=== PATIENT | male | born 1940 | race Caucasian/White ===

== ENCOUNTER 2018-07-07 14:51 | Inpatient (IN) | payer MEDICARE, OTHER ==
[2018-07-07 15:53] LABS: ADD MAN DIFF? NO
[2018-07-07 15:57] LABS: WHITE BLOOD COUNT 5.3 10^3/ul (4.8-10.8)
[2018-07-07 15:57] LABS: BASOPHILS % 0.4 % (0.0-2.0); EOSINOPHILS % 0.8 % (0.0-7.0); HEMATOCRIT 40.4 % (42.0-52.0); HEMOGLOBIN 12.5 g/dl (14.0-18.0); LYMPHOCYTES # 0.9 10^3/ul (0.8-2.9); LYMPHOCYTES % 17.3 % (15.0-51.0); MEAN CORPUSCULAR HEMOGLOBIN 27.7 pg (29.0-33.0); MEAN CORPUSCULAR HGB CONC 30.9 g/dl (32.0-37.0); MEAN CORPUSCULAR VOLUME 89.6 fl (82.0-101.0); MEAN PLATELET VOLUME 10.9 fl (7.4-10.4); MONOCYTE # 0.5 10^3/ul (0.3-0.9); NEUTROPHIL # 3.8 10^3/ul (1.6-7.5); NEUTROPHILS % 72.3 % (39.0-77.0); PLATELET COUNT 132 10^3/UL (140-415); POSITIVE DIFF @See below; RED BLOOD COUNT 4.51 10^6/ul (4.70-6.10); RED CELL DISTRIBUTION WIDTH 16.1 % (11.5-14.5)
[2018-07-07] MEDS ORDERED: ACETAMINOPHEN 325 MG TAB PO ×2 (16:00→19:00)
[2018-07-07] MEDS ORDERED: ONDANSETRON 4 MG INJ IV ×2 (16:00→19:00)
[2018-07-07 16:16] LABS: PROTIME 26.2 Sec (11.9-14.9)
[2018-07-07 16:18] LABS: ALANINE AMINOTRANSFERASE 18 IU/L (13-69); ALBUMIN 3.8 g/dl (3.3-4.9); ALBUMIN/GLOBULIN RATIO 1.11; ALKALINE PHOSPHATASE 84 IU/L (42-121); ANION GAP 9 (5-13); ASPARTATE AMINO TRANSFERASE 24 IU/L (15-46); BILIRUBIN,INDIRECT 0.3 mg/dl (0-1.1); BILIRUBIN,TOTAL 0.3 mg/dl (0.2-1.3); BLOOD UREA NITROGEN 25 mg/dl (7-20); CALCIUM 9.4 mg/dl (8.4-10.2); CARBON DIOXIDE 30 mmol/L (21-31); CHLORIDE 100 mmol/L (97-110); CREATININE 1.12 mg/dl (0.61-1.24); GLUCOSE 117 mg/dl (70-220); POTASSIUM 4.1 mmol/L (3.5-5.1); SODIUM 139 mmol/L (135-144); TOTAL PROTEIN 7.2 g/dl (6.1-8.1)
[2018-07-07 16:29] LABS: TROPONIN-I < 0.012 ng/ml (0.000-0.120)
[2018-07-07] MEDS: PANTOPRAZOLE 40 MG INJ IV (16:33)
[2018-07-07] MEDS ORDERED: ZOLPIDEM 5 MG TAB PO (19:00)
[2018-07-07] MEDS ORDERED: NACL 0.9% 3 ML SYG IV (19:00)
[2018-07-07 20:05] LABS: OCCULT BLOOD STOOL NEGATIVE (NEGATIVE)
[2018-07-07] MEDS ORDERED: DEXTROSE 50% 50 ML SYRINGE IV ×2 (20:30)
[2018-07-07] MEDS ORDERED: GLUCOSE GEL 15 GRAM TUBE BUCCAL (20:30)
[2018-07-07] MEDS ORDERED: GLUCOSE GEL 15 GRAM TUBE PO ×2 (20:30)
[2018-07-07] MEDS ORDERED: GLUCAGON 1 MG INJ IM (20:30)
[2018-07-07] MEDS: INSULIN ASPART [NOVOLOG] 3 ML PEN SC (21:00)
[2018-07-07] MEDS: DEXTROSE 5%-0.45% NACL 1,000 ML IV (22:02)
[2018-07-07] MEDS: SOD CHLORIDE 0.9% 0 ML IV (22:03)
[2018-07-07] MEDS: ATORVASTATIN 40 MG TAB PO (22:04)
[2018-07-07] MEDS: DOXAZOSIN 4 MG TAB PO (22:05)
[2018-07-08 00:49] LABS: HEMATOCRIT 33.9 % (42.0-52.0); HEMOGLOBIN 10.8 g/dl (14.0-18.0)
[2018-07-08 01:36] LABS: IMMEDIATE SPIN CROSSMATCH 1 2
[2018-07-08 03:48] LABS: ADD MAN DIFF? NO
[2018-07-08 04:07] LABS: BASOPHILS % 0.4 % (0.0-2.0); EOSINOPHILS # 0.1 10^3/ul (0.0-0.5); EOSINOPHILS % 1.1 % (0.0-7.0); HEMOGLOBIN 10.3 g/dl (14.0-18.0); LYMPHOCYTES # 1.2 10^3/ul (0.8-2.9); LYMPHOCYTES % 21.6 % (15.0-51.0); MEAN CORPUSCULAR HEMOGLOBIN 28.9 pg (29.0-33.0); MEAN CORPUSCULAR HGB CONC 32.2 g/dl (32.0-37.0); MEAN CORPUSCULAR VOLUME 89.6 fl (82.0-101.0); MONOCYTE # 0.5 10^3/ul (0.3-0.9); MONOCYTES % 9.8 % (0.0-11.0); NEUTROPHIL # 3.6 10^3/ul (1.6-7.5); NEUTROPHILS % 66.9 % (39.0-77.0); PLATELET COUNT 107 10^3/UL (140-415); RED BLOOD COUNT 3.57 10^6/ul (4.70-6.10); RED CELL DISTRIBUTION WIDTH 15.8 % (11.5-14.5)
[2018-07-08 04:07] LABS: WHITE BLOOD COUNT 5.4 10^3/ul (4.8-10.8)
[2018-07-08 04:09] LABS: ALANINE AMINOTRANSFERASE 21 IU/L (13-69); ALBUMIN 3.2 g/dl (3.3-4.9); ALKALINE PHOSPHATASE 66 IU/L (42-121); ANION GAP 5 (5-13); ASPARTATE AMINO TRANSFERASE 20 IU/L (15-46); BILIRUBIN,INDIRECT 0.7 mg/dl (0-1.1); BILIRUBIN,TOTAL 0.7 mg/dl (0.2-1.3); BLOOD UREA NITROGEN 21 mg/dl (7-20); CALCIUM 8.9 mg/dl (8.4-10.2); CARBON DIOXIDE 28 mmol/L (21-31); CHLORIDE 110 mmol/L (97-110); CREATININE 0.95 mg/dl (0.61-1.24); GLUCOSE 93 mg/dl (70-220); INR 1.66; POTASSIUM 3.5 mmol/L (3.5-5.1); PROTIME 19.7 Sec (11.9-14.9); PT RATIO 1.5; SODIUM 143 mmol/L (135-144); TOTAL PROTEIN 6.1 g/dl (6.1-8.1)
[2018-07-08 04:16] LABS: HEMOGLOBIN A1C 6.2 % (0-5.9)
[2018-07-08] MEDS: DEXTROSE 5%-0.45% NACL 1,000 ML IV (06:00)
[2018-07-08 07:43] LABS: HEMATOCRIT 32.6 % (42.0-52.0); HEMOGLOBIN 10.4 g/dl (14.0-18.0)
[2018-07-08] MEDS: INSULIN ASPART [NOVOLOG] 3 ML PEN SC ×4 (08:00→20:37)
[2018-07-08] MEDS: DILTIAZEM (CD) 180 MG CAP PO (09:41)
[2018-07-08] MEDS: BENAZEPRIL 40 MG TAB PO (09:42)
[2018-07-08] MEDS: METOPROLOL (XL) 25 MG TAB PO (09:43)
[2018-07-08 12:23] LABS: HEMATOCRIT 32.6 % (42.0-52.0); HEMOGLOBIN 10.2 g/dl (14.0-18.0)
[2018-07-08] MEDS: ATORVASTATIN 40 MG TAB PO (20:37)
[2018-07-08] MEDS: DOXAZOSIN 4 MG TAB PO (20:38)
[2018-07-09 06:57] LABS: ADD MAN DIFF? NO
[2018-07-09 07:01] LABS: WHITE BLOOD COUNT 5.2 10^3/ul (4.8-10.8)
[2018-07-09 07:01] LABS: BASOPHILS % 0.4 % (0.0-2.0); EOSINOPHILS # 0.1 10^3/ul (0.0-0.5); EOSINOPHILS % 1.3 % (0.0-7.0); HEMATOCRIT 32.2 % (42.0-52.0); HEMOGLOBIN 10.1 g/dl (14.0-18.0); LYMPHOCYTES # 1.1 10^3/ul (0.8-2.9); MEAN CORPUSCULAR HEMOGLOBIN 28.7 pg (29.0-33.0); MEAN CORPUSCULAR HGB CONC 31.4 g/dl (32.0-37.0); MEAN CORPUSCULAR VOLUME 91.5 fl (82.0-101.0); MEAN PLATELET VOLUME 11.3 fl (7.4-10.4); MONOCYTE # 0.5 10^3/ul (0.3-0.9); MONOCYTES % 9.4 % (0.0-11.0); NEUTROPHIL # 3.6 10^3/ul (1.6-7.5); NEUTROPHILS % 68.7 % (39.0-77.0); PLATELET COUNT 110 10^3/UL (140-415); POSITIVE DIFF @See below; RED BLOOD COUNT 3.52 10^6/ul (4.70-6.10)
[2018-07-09 07:30] LABS: ALANINE AMINOTRANSFERASE 17 IU/L (13-69); ALBUMIN 3.3 g/dl (3.3-4.9); ALKALINE PHOSPHATASE 66 IU/L (42-121); ANION GAP 9 (5-13); ASPARTATE AMINO TRANSFERASE 23 IU/L (15-46); BILIRUBIN,INDIRECT 0.6 mg/dl (0-1.1); BILIRUBIN,TOTAL 0.6 mg/dl (0.2-1.3); BLOOD UREA NITROGEN 23 mg/dl (7-20); CALCIUM 9.1 mg/dl (8.4-10.2); CARBON DIOXIDE 27 mmol/L (21-31); CHLORIDE 106 mmol/L (97-110); CREATININE 1.01 mg/dl (0.61-1.24); GLUCOSE 118 mg/dl (70-220); POTASSIUM 3.9 mmol/L (3.5-5.1); SODIUM 142 mmol/L (135-144); TOTAL PROTEIN 6.3 g/dl (6.1-8.1)
[2018-07-09] MEDS: INSULIN ASPART [NOVOLOG] 3 ML PEN SC ×2 (08:00→12:00)
[2018-07-09] MEDS: BENAZEPRIL 40 MG TAB PO (09:03)
[2018-07-09] MEDS: METOPROLOL (XL) 25 MG TAB PO (09:03)
[2018-07-09] MEDS: DILTIAZEM (CD) 180 MG CAP PO (09:04)
== END 2018-07-09 17:40 | disposition home or self-care (01) | DRG 379 ==
LOC: E/R 14:51 → PP2 15:43
PROC: 30230K1 Transfusion of Nonautologous Frozen Plasma into Peripheral Vein, Open Approach (ICD-10-PCS; principal; 2018-07-07)
DX: K57.51 Diverticulosis of both small and large intestine without perforation or abscess with bleeding (principal); D50.0 Iron deficiency anemia secondary to blood loss (chronic); I48.2 Chronic atrial fibrillation; I27.20 Pulmonary hypertension, unspecified; I71.4 Abdominal aortic aneurysm, without rupture; E66.9 Obesity, unspecified; Z68.38 Body mass index [BMI] 38.0-38.9, adult; N40.0 Benign prostatic hyperplasia without lower urinary tract symptoms; G47.33 Obstructive sleep apnea (adult) (pediatric); I10 Essential (primary) hypertension; E78.5 Hyperlipidemia, unspecified; E11.9 Type 2 diabetes mellitus without complications; Z79.01 Long term (current) use of anticoagulants; Z85.828 Personal history of other malignant neoplasm of skin; Z87.891 Personal history of nicotine dependence
CPT/HCPCS: 36415; 36430; 78278; 80053; 82270; 82962; 83036; 84484; 85014; 85018; 85025; 85610; 85730; 86850; 86900; 86901; 86920; 93005; 99285-25

== ENCOUNTER 2018-09-08 21:57 | Emergency (ER) | payer MEDICARE, OTHER ==
[2018-09-08] MEDS: SOD CHLORIDE 0.9% 500 ML IV (22:20)
[2018-09-08 22:29] LABS: ADD MAN DIFF? NO
[2018-09-08 22:35] LABS: BASOPHILS % 0.3 % (0.0-2.0); EOSINOPHILS # 0.1 10^3/ul (0.0-0.5); EOSINOPHILS % 1.3 % (0.0-7.0); HEMATOCRIT 36.5 % (42.0-52.0); HEMOGLOBIN 11.1 g/dl (14.0-18.0); LYMPHOCYTES # 1.4 10^3/ul (0.8-2.9); LYMPHOCYTES % 22.6 % (15.0-51.0); MEAN CORPUSCULAR HEMOGLOBIN 27.3 pg (29.0-33.0); MEAN CORPUSCULAR HGB CONC 30.4 g/dl (32.0-37.0); MEAN CORPUSCULAR VOLUME 89.9 fl (82.0-101.0); MEAN PLATELET VOLUME 10.7 fl (7.4-10.4); MONOCYTE # 0.7 10^3/ul (0.3-0.9); MONOCYTES % 11.1 % (0.0-11.0); NEUTROPHIL # 3.9 10^3/ul (1.6-7.5); NEUTROPHILS % 64.4 % (39.0-77.0); PLATELET COUNT 173 10^3/UL (140-415); RED BLOOD COUNT 4.06 10^6/ul (4.70-6.10); RED CELL DISTRIBUTION WIDTH 15.3 % (11.5-14.5)
[2018-09-08 22:37] LABS: ADD UMIC NO; UR ASCORBIC ACID NEGATIVE (NEGATIVE); UR BILIRUBIN (Dip) NEGATIVE (NEGATIVE); UR BLOOD (Dip) NEGATIVE (NEGATIVE); UR CLARITY CLEAR (CLEAR); UR COLOR YELLOW (YELLOW); UR GLUCOSE (Dip) NEGATIVE (NEGATIVE); UR KETONES (Dip) NEGATIVE (NEGATIVE); UR LEUKOCYTE ESTERASE (Dip) NEGATIVE Leu/ul (NEGATIVE); UR NITRITE (Dip) NEGATIVE (NEGATIVE); UR SPECIFIC GRAVITY (Dip) 1.009 (1.003-1.030); UR TOTAL PROTEIN (Dip) NEGATIVE (NEGATIVE); UR UROBILINOGEN (Dip) NEGATIVE (NEGATIVE)
[2018-09-08 22:54] LABS: INR 1.86; PROTIME 21.5 Sec (11.9-14.9); PT RATIO 1.7
[2018-09-08 22:55] LABS: PARTIAL THROMBOPLASTIN TIME 40.1 Sec (23.0-35.0)
[2018-09-08 23:10] LABS: ALANINE AMINOTRANSFERASE 24 IU/L (13-69); ALBUMIN 3.9 g/dl (3.3-4.9); ALKALINE PHOSPHATASE 81 IU/L (42-121); ANION GAP 7 (5-13); ASPARTATE AMINO TRANSFERASE 20 IU/L (15-46); BILIRUBIN,INDIRECT 0.4 mg/dl (0-1.1); BILIRUBIN,TOTAL 0.4 mg/dl (0.2-1.3); BLOOD UREA NITROGEN 19 mg/dl (7-20); CALCIUM 9.1 mg/dl (8.4-10.2); CARBON DIOXIDE 28 mmol/L (21-31); CHLORIDE 105 mmol/L (97-110); GLUCOSE 136 mg/dl (70-220); LIPASE 206 U/L (23-300); POTASSIUM 4.6 mmol/L (3.5-5.1); SODIUM 140 mmol/L (135-144); TOTAL PROTEIN 6.9 g/dl (6.1-8.1)
[2018-09-08 23:22] LABS: TROPONIN-I < 0.012 ng/ml (0.000-0.120)
== END 2018-09-09 02:17 | disposition home or self-care (01) ==
LOC: E/R 09-09 02:17
DX: R19.5 Other fecal abnormalities (principal); I10 Essential (primary) hypertension
CPT/HCPCS: 36415; 71045; 74176; 80053; 81003; 83690; 84484; 85025; 85610; 85730; 93005; 99285-25